=== PATIENT | female | born 1945 | race Native Hawaiian/Other Pacific Islander ===

== ENCOUNTER 2016-04-25 10:19 | Outpatient (CLI) | payer OTHER, MEDICARE | END 2016-04-25 19:09 | disposition home or self-care (01) | LOC: MAMMO 10:19 | DX: Z12.31 Encounter for screening mammogram for malignant neoplasm of breast (principal); M81.0 Age-related osteoporosis without current pathological fracture | CPT/HCPCS: G0202-TC ==

== ENCOUNTER 2017-04-17 09:18 | Outpatient (CLI) | payer OTHER, MEDICARE ==
[~2017-04-17] VITALS: Ht 170.2 cm; Wt 77.1 kg
== END 2017-04-17 19:28 | disposition home or self-care (01) ==
LOC: INF 09:18
DX: M81.0 Age-related osteoporosis without current pathological fracture (principal)
CPT/HCPCS: 36415; 82310; 96372; J0897

== ENCOUNTER 2017-12-01 10:00 | Outpatient (CLI) | payer OTHER, MEDICARE ==
[~2017-12-01] VITALS: Ht 160 cm; Wt 77.1 kg
[2017-12-01 10:20] VITALS: BP 162/67; TEMP 97.4
[2017-12-01 10:57] VITALS: BP 146/70; TEMP 98.3
== END 2017-12-01 23:29 | disposition home or self-care (01) ==
LOC: INF 10:00
DX: M81.0 Age-related osteoporosis without current pathological fracture (principal)
CPT/HCPCS: 36415; 82310; 96372; J0897

== ENCOUNTER 2018-07-30 09:58 | Outpatient (CLI) | payer OTHER, MEDICARE ==
[~2018-07-30] VITALS: Ht 160 cm; Wt 77.1 kg
[2018-07-30 10:35] VITALS: BP 138/52; TEMP 97.9
== END 2018-07-30 19:59 | disposition home or self-care (01) ==
LOC: INF 09:58 → MAMMO 13:00 → INF 19:59
DX: Z12.31 Encounter for screening mammogram for malignant neoplasm of breast (principal); M81.0 Age-related osteoporosis without current pathological fracture
CPT/HCPCS: 36415; 82310; J0897

== ENCOUNTER 2019-03-09 09:58 | Outpatient (CLI) | payer OTHER, MEDICARE ==
[~2019-03-09] VITALS: Ht 160 cm; Wt 79.4 kg
[2019-03-09 10:30] VITALS: BP 129/62; TEMP 98
== END 2019-03-09 10:50 | disposition home or self-care (01) ==
LOC: INF 09:58
DX: M81.0 Age-related osteoporosis without current pathological fracture (principal)
CPT/HCPCS: 36415; 82310; 96372; J0897

== ENCOUNTER 2020-04-18 10:07 | Outpatient (CLI) | payer OTHER, MEDICARE | END 2020-04-18 23:25 | disposition home or self-care (01) | LOC: CT 10:07 | PROVIDERS: ATTEND Nurse Practitioner Family | DX: G44.52 New daily persistent headache (NDPH) (principal) ==

== ENCOUNTER 2021-10-15 09:50 | Outpatient (CLI) | payer OTHER, MEDICARE | END 2021-10-15 18:53 | disposition home or self-care (01) | LOC: RAD 09:50 → RESP 09:50 → RAD 18:53 | PROVIDERS: ATTEND Nurse Practitioner Family | DX: R00.1 Bradycardia, unspecified (principal) ==